=== PATIENT | female | born 1995 | race Caucasian/White ===

== ENCOUNTER 2017-02-23 10:11 | Emergency (ER) | payer BC ==
[2017-02-23 10:16] VITALS: BP 103/75; TEMP 98; BMI 18.1
--- NOTE | 2017-02-23 10:31 | PDOC ---
History of Present Illness - General History Source: Patient Exam Limitations: No Limitations - History of Present Illness Initial Comments: 02/23/17 10:55 The patient is a 21 year old female with a significant past medical history of ovarian cysts, presenting to the Emergency Department with lower abdominal pain. The patient reports that she started experiencing lower mid abdominal pain and vaginal pain this morning. The patient believes she may have an erupted cyst as she has a history of ovarian cysts. The patient admits that the pain is exacerbated when urinating. The patient denies , her LMP was two weeks ago. The patient denies being on any form of control. The patient admits that she was drinking alcohol last night. The patient denies vaginal discharge, or vaginal bleeding. Patient denies dysuria, hematuria, and urinary frequency. Patient denies nausea, vomiting, and diarrhea. Patient denies fever, chills, and cough. <Tonya Thakur - Last Filed: 02/23/17 12:22> <Trung Tirado - Last Filed: 02/23/17 12:30> - General Chief Complaint: Pain Stated Complaint: ABD PAIN Time Seen by Provider: 02/23/17 10:30 Past History <Tonya Thakur - Last Filed: 02/23/17 12:22> - Past Medical History Other medical history: ovarian cyst - Psycho/Social/Smoking Cessation Hx Anxiety: No Suicidal Ideation: No Smoking History: Never smoked Have you smoked in the past 12 months: No Information on smoking cessation initiated: No Hx Alcohol Use: No Drug/Substance Use Hx: No Substance Use Type: None <Trung Tirado - Last Filed: 02/23/17 12:30> - Past Medical History Allergies/Adverse Reactions: Allergies Allergy/AdvReac Type Severity Reaction Status Date / Time No Known Allergies Allergy Verified 02/23/17 10:13 Home Medications: Ambulatory Orders Ibuprofen 800 mg PO TID #30 tablet 02/23/17 Ondansetron [Zofran *Odt*] 8 mg SL TID #30 od.tablet 02/23/17 Oxycodone HCl/Acetaminophen [Percocet 5-325 mg Tablet] 1 - 2 tab PO Q6H #20 tab MDD 6 02/23/17 Review of Systems - Review of Systems Able to Perform ROS?: Yes Comments:: 02/23/17 10:56 GENERAL/CONSTITUTIONAL: No fever or chills. No weakness. HEAD, EYES, EARS, NOSE AND THROAT: No change in vision. No ear pain or discharge. No sore throat. CARDIOVASCULAR: No chest pain or shortness of breath. RESPIRATORY: No cough, wheezing, or hemoptysis. GASTROINTESTINAL: No nausea, vomiting, diarrhea or constipation. GENITOURINARY: + lower mid abdominal pain. No dysuria, frequency, or change in urination. MUSCULOSKELETAL: No joint or muscle swelling or pain. No neck or back pain. SKIN: No rash NEUROLOGIC: No headache, vertigo, loss of consciousness, or change in strength/ sensation. ENDOCRINE: No increased thirst. No abnormal weight change. HEMATOLOGIC/LYMPHATIC: No anemia, easy bleeding, or history of blood clots. ALLERGIC/IMMUNOLOGIC: No hives or skin allergy. <Tonya Thakur - Last Filed: 02/23/17 12:22> *Physical Exam - Vital Signs Last Vital Signs Temp Pulse Resp BP Pulse Ox 98.0 F 104 H 18 103/75 100 02/23/17 10:14 02/23/17 10:14 02/23/17 10:14 02/23/17 10:14 02/23/17 10:14 - Physical Exam Comments: 02/23/17 11:08 GENERAL: Awake, alert, and fully oriented, in no acute distress HEAD: No signs of trauma EYES: PERRLA, EOMI, sclera anicteric, conjunctiva clear ENT: Auricles normal inspection, hearing grossly normal, nares patent, oropharynx clear without exudates. Moist mucosa NECK: Normal ROM, supple, no lymphadenopathy, JVD, or masses LUNGS: Breath sounds equal, clear to auscultation bilaterally. No wheezes, and no crackles HEART: Regular rate and rhythm, normal S1 and S2, no murmurs, rubs or gallops ABDOMEN: Soft, nontender, normoactive bowel sounds. No guarding, no rebound. No masses EXTREMITIES: Normal range of motion, no edema. No clubbing or cyanosis. No cords, erythema, or tenderness NEUROLOGICAL: Cranial nerves II through XII grossly intact. Normal speech, normal gait SKIN: Warm, Dry, normal turgor, no rashes or lesions noted. <Tonya Thakur - Last Filed: 02/23/17 12:22> - Vital Signs Last Vital Signs Temp Pulse Resp BP Pulse Ox 98.0 F 104 H 18 103/75 100 02/23/17 10:14 02/23/17 10:14 02/23/17 10:14 02/23/17 10:14 02/23/17 10:14 <Trung Tirado - Last Filed: 02/23/17 12:30> ED Treatment Course - LABORATORY CBC & Chemistry Diagram: 02/23/17 11:12 02/23/17 11:12 - RADIOLOGY Radiograph Interpretation: 02/23/17 12:22 Transvaginal US As reviewed by Dr. Cory Malone Impression: 2.7 right ovarian structure is noted probably representing a hemorraghic cyst and less likely a solid nodule. Complex free fluid probably representing blood is seen within the right adnexa. <Tonya Thakur - Last Filed: 02/23/17 12:22> - LABORATORY CBC & Chemistry Diagram: 02/23/17 11:12 02/23/17 11:12 <Trung Tirado - Last Filed: 02/23/17 12:30> *DC/Admit/Observation/Transfer - Attestations Scribe Attestion: 02/23/17 10:56 Documentation prepared by Tonya Thakur, acting as er medical technician for Trung Tirado MD/DO. <Tonya Thakur - Last Filed: 02/23/17 12:22> - Discharge Dispostion Admit: No - Attestations Physician Attestion: 02/23/17 10:31 I, Dr. Trung Tirado, attest that this document has been prepared under my direction and personally reviewed by me in its entirety. I further attest, that it accurately reflects all work, treatment, procedures and medical decision -making performed by me. <Trung Tirado - Last Filed: 02/23/17 12:30> Diagnosis at time of Disposition: Hemorrhagic cyst of ovary Abdominal pain Qualifiers: Abdominal location: right lower quadrant Qualified Code(s): R10.31 - Right lower quadrant pain - Discharge Dispostion Disposition: HOME Condition at time of disposition: Good - Prescriptions Prescriptions: Ibuprofen 800 mg PO TID #30 tablet Oxycodone HCl/Acetaminophen [Percocet 5-325 mg Tablet] 1 - 2 tab PO Q6H #20 tab MDD 6 Ondansetron [Zofran *Odt*] 8 mg SL TID #30 od.tablet - Referrals Referrals: Zak Marks MD [Staff Physician] - - Patient Instructions Printed Discharge Instructions: DI for Ovarian Cyst Additional Instructions: Janie- Sorry this hurts so badly. You do have an ovarian cyst. Call Dr. Marks's office in the morning to schedule a follow up exam. You will need to have a repeat ultrasound in 6 weeks to make sure that everything is better and all healed. Motrin is for moderate pain. Percocet is for severe pain. Zofran ODT is for upset stomach, nausea or vomiting. Return to us if any problems. Best- Dr. Trung Tirado
[2017-02-23 11:00] LABS: URINE APPEARANCE CLEAR; URINE BILIRUBIN NEGATIVE (NEGATIVE); URINE BLOOD NEGATIVE (NEGATIVE); URINE COLOR YELLOW; URINE GLUCOSE (UA) NEGATIVE (NEGATIVE); URINE KETONE NEGATIVE (NEGATIVE); URINE LEUK ESTERASE NEGATIVE (NEGATIVE); URINE NITRITE NEGATIVE (NEGATIVE); URINE PROTEIN NEGATIVE (NEGATIVE); URINE UROBILINOGEN NEGATIVE E.U./dl (0.2-1.0)
[2017-02-23 11:19] LABS: BASOPHIL 0.4 % (0-2.0); EOSINOPHIL 0.6 % (0-4.5); MCH 29.4 pg (25.7-33.7); MCHC 32.5 g/dl (32.0-36.0); MEAN CELL VOLUME 90.3 fl (80-96); MEAN PLT VOLUME 8.4 fl (7.5-11.1); NEUTROPHILS 74.4 % (42.8-82.8); PLATELET COUNT 241 K/MM3 (134-434); WHITE BLOOD COUNT 9.6 K/mm3 (4.0-10.0)
[2017-02-23 11:31] LABS: INR 1.12 (0.82-1.09); PROTHROMBIN TIME (PATIENT) 12.3 SEC (9.98-11.88)
[2017-02-23 11:41] LABS: ALBUMIN 4.4 g/dl (3.4-5.0); ALK PHOS 53 U/L (45-117); ANION GAP 12 (8-16); BILIRUBIN,TOTAL 0.6 mg/dL (0.2-1.0); CALCIUM 9.2 mg/dL (8.5-10.1); CO2 22 mmol/L (21-32); COCKROFT - GAULT 100.2405; CREATININE 0.7 mg/dL (0.55-1.02); GLUCOSE,RANDOM 67 mg/dL (74-106); SGOT/AST 18 U/L (15-37); SGPT/ALT 23 U/L (12-78); TOT PROT 6.9 g/dl (6.4-8.2)
[2017-02-23] MEDS ORDERED: IBUPROFEN 400 MG TABLET (FP) PO ONE ×2 (12:05→12:17)
[2017-02-23] MEDS ORDERED: ONDANSETRON *ODT* 4 MG TABLET SL ONE (12:05)
[2017-02-23] MEDS ORDERED: ONDANSETRON *ODT* 4 MG TABLET ONE (12:16)
[2017-02-23 12:57] VITALS: PULSE 82
== END 2017-02-23 12:56 | disposition home or self-care (01) ==
LOC: JER 10:11
DX: N83.291 Other ovarian cyst, right side (principal)
CPT/HCPCS: 36415; 76830-TC; 80053; 81003; 84703; 85025; 85610; 99283-25